=== PATIENT | male | born 1955 | race Caucasian/White ===

== ENCOUNTER → 2022-02-04 | Outpatient (CLI) | payer BC | LOC: EXRD 09:20 | DX: Z12.5 Encounter for screening for malignant neoplasm of prostate (principal) | CPT/HCPCS: 76706 ==

== ENCOUNTER → 2022-02-25 | Outpatient (CLI) | payer MEDICARE ==
[~2022-02-25] MED LIST: ASPIRIN EC81 MG PO; ATORVASTATIN CA80 MG PO; GLUCOSAMINE CH1 EAC7 PO; JANUVIA 100 MG100 MG PO; LANTUS SOL100 UNIT/1 SQ; LISINOPRIL2.5 MG PO; LOPRESSOR 25 MG25 MG PO; MEN'S ONE DAIL1 EACH PO; METFORMIN HCL1000 MG PO; PROBIOTIC PO; PROTONIX 40 MG40 M1 PO; TRICOR 145 MG145 MG PO; VITAMIN D325 MC6 PO; [UNRECOGNIZED DRUG - OTHER] PO
[2022-02-25 09:26] LABS: HEMOGLOBIN 14.2 gm/dl (14.0-17.5); RED BLOOD COUNT 4.62 M/UL (4.20-5.50); WHITE BLOOD COUNT 5.6 K/UL (4.5-11.0)
[2022-02-25 09:50] LABS: BUN/CREATININE RATIO 20 (0-10)
== END ==
LOC: OPSV2 07:58 → EDSTATUS 08:00
PROVIDERS: Orthopaedic Surgery
DX: Z01.818 Encounter for other preprocedural examination (principal); M17.12 Unilateral primary osteoarthritis, left knee
CPT/HCPCS: 80048; 85027; 93005

== ENCOUNTER → 2022-03-10 | Outpatient (CLI) | payer MEDICARE ==
[~2022-03-10] MED LIST changes: +ACETAMINOPHEN500 M1 PO
[2022-03-10 12:07] LABS: BUN/CREATININE RATIO 18 (0-10)
== END ==
LOC: LAB 10:35
PROVIDERS: Orthopaedic Surgery
DX: Z01.812 Encounter for preprocedural laboratory examination (principal); M17.12 Unilateral primary osteoarthritis, left knee
CPT/HCPCS: 36415; 80048; 86850; 86900; 86901

== ENCOUNTER → 2022-03-11 | Day surgery (SDC) | payer MEDICARE ==
[~2022-03-11] VITALS: Ht 170.2 cm; Wt 100.7 kg
== END | disposition home or self-care (01) ==
LOC: OR 05:29
DX: M17.12 Unilateral primary osteoarthritis, left knee (principal); G89.18 Other acute postprocedural pain; I10 Essential (primary) hypertension; E78.5 Hyperlipidemia, unspecified; K21.9 Gastro-esophageal reflux disease without esophagitis; E11.9 Type 2 diabetes mellitus without complications; Z79.4 Long term (current) use of insulin; Z79.82 Long term (current) use of aspirin; Z79.891 Long term (current) use of opiate analgesic; Z79.899 Other long term (current) drug therapy
CPT/HCPCS: 73560; 82962; 97162; 97165; 97530; 97535; C1713; C1776; J0690; J1100; J1170; J2001; J2250; J2274; J2704; J2795